=== PATIENT | male | born 1955 | race Caucasian/White ===

== ENCOUNTER 2025-05-18 09:52 | Emergency (ER) | payer MEDICARE, OTHER, SELFPAY ==
[2025-05-18] VITALS (10 sets, daily range): BP systolic 127–157; BP diastolic 73–83; PULSE 64–73; RESP 16–18; TEMP 36.4; O2SAT 95–100; BMI 29.9
--- OUTSIDE RECORDS SUMMARY | 2025-05-18 09:58 | XMS_ITS | Clinical Summary ---
Author Organization [facility] [place] Address [address] [place] [address] Phone Care Team Providers Care Hemodialysis Rn Name Role Phone Unavailable Primary Care Provider Unavailabl e Social History Tobacco Use Types Packs/Day Years Used Date Smoking Tobacco: Never Assessed Sex and Gender Information Value Date Recorded Sex Assigned at Not on file Legal Sex Male 3:27 PM CDT Gender Identity Not on file Sexual Orientation Not on file Plan of Treatment Health Maintenance Due Date Last Done Comments DTAP/TDAP/TD VACCINES (1 - Tdap) 12/07/1975 COLORECTAL SCREENING 2001 Colorectal Cancer Screening 2001 FIT-DNA Q 3 years 2001 FIT/FOBT Q 1 year 2001 Flex Sig/CT Colonography Q 5 years 2001 PNEUMOCOCCAL VACCINE 50+ YEARS (1 of 1 - PCV) 12/07/19 07 ZOSTER VACCINE (1 of 2) 2006 INFLUENZA VACCINE (#1) 2024 RSV VACCINE (60+ or ) (1 - 1-dose 75+ series) 12/07/2031 [facility]
--- NOTE | 2025-05-18 09:59 | XRR_ITS ---
PROCEDURE INFORMATION: Exam: XR Left Tibia and Fibula Exam date and time: 05/18/2025 10:03 AM Age: 69 years old Clinical indication: Injury or trauma; Fall; Blunt trauma; Lower leg; Left; Additional info: Traumatic pain and swelling TECHNIQUE: Imaging protocol: Radiologic exam of the left tibia and fibula. Views: 2 views. COMPARISON: No relevant prior studies available. FINDINGS: Bones/joints: Impacted, mildly angulated and comminuted fracture of the proximal tibial metaphysis. No definite visible fracture of the fibula within the limitations of the mildly suboptimally position study. Mild degenerative changes of the mediolateral compartments of the knee. Mild height loss of the lateral tibial plateau suspicious for an acute tibial plateau fracture. No visible fracture of the mid or distal tibia. Soft tissues: Soft tissue edema along the proximal lower leg. XR/XR tibia fibula LT 2V [id number] IMPRESSION: 1. Impacted, mildly angulated and comminuted fractures of the proximal tibial metaphysis. 2. Mild height loss of the lateral tibial plateau suspicious for an acute lateral tibial plateau fracture. 3. No visible fracture of the mid or distal tibia. No visible fibula fracture.
--- OUTSIDE RECORDS SUMMARY | 2025-05-18 09:59 | XMS_ITS | Encounter Summary ---
Author Organization [facility] Address [address] [place] [address] Care Team Providers Care Continuous Vulcanizing Machine Operator Name Role Phone Deandre Shabazz MD Primary Care Provider [phone] [phone] Encounter Details Date Type Department Care Team (Late st Contact Info) Description 05/12/2025 External Device Data ST[facility] ABSTRACTION Provider, Abstract NO ADDRESS ON FILE Social History Tobacco Use Types Packs/Day Years Used Date Smoking Tobacco: Never Smokeless Tobacco: Current Chew Alcohol Use Standard Drinks/Week Comments Not Currently 0 (1 standard drink = 0.6 oz pur e alcohol) socially Sex and Gender Information Value Date Recorded Sex Assigned at Not on file Legal Sex Male 4:32 PM CDT Gender Identity Not on file Sexual Orientation Not on file documented as of this encounter Plan of Treatment Upcoming Encounters Date Type Department Care Team (Late st Contact Info) Description 07/08/2025 1:30 PM COMMUNICATIONS DESIGNER Office Visit [facility] Urology [address] [address] Sophia Her FNP [address] [place] [phone] 10/22/2025 9:00 AM CDT Office Visit [facility] Family Medicine [place] [address] [address] Deandre Shabazz MD [address] [address] documented as of this encounter Visit Diagnoses Not on filedocumented in this encounter Care Teams Continuous Vulcanizing Machine Operator Relationship Specialty Start Date End Date Deandre Shabazz MD [address] [address] PCP - General Family Practice 10/07/22 documented as of this encounter
--- OUTSIDE RECORDS SUMMARY | 2025-05-18 09:59 | XMS_ITS | Encounter Summary ---
Author Organization [facility] Address [address] [place] [address] Care Team Providers Care Community Director Name Role Phone Deandre Shabazz MD Primary Care Provider [phone] [phone] Reason for Visit * Reason Onset Date Comments Self monitored BP readings 05/15/2025 Encounter Details Date Type Department Care Team (Late Contact Info) Description 05/15/2025 Patient Outreach [address] [address] Deandre Shabazz MD [address] [place] [phone] Self monitored BP readings Social History Tobacco Use Types Packs/Day Years [...] st Contact Info) Description 07/08/2025 1:[address] COLLECTIONS OFFICER Office Visit [facility] [place] [address] [place] [address] Sophia Her FNP [address] [place] [address] 10/22/2025 9:00 AM CDT Office Visit [facility] [address] [place] [phone] Deandre Shabazz MD [address] [place] [address] documented as of this encounter Visit Diagnoses Not on filedocumented in this encounter Care Teams Community Director Relationship Specialty Start Date End Date Deandre Shabazz MD [address] [place] [address] PCP - General Family Practice 10/07/22 documented as of this encounter
--- OUTSIDE RECORDS SUMMARY | 2025-05-18 09:59 | XMS_ITS | Clinical Summary ---
Author Organization [facility] [place] Address [address] [place] [address] Phone Care Team Providers Care Punchboard Stuffer Name Role Phone Deandre Shabazz MD Primary Care Provider [phone] [phone] Allergies Active Allergy Reactions Criticality Noted Date Comments Lisinopril Palpitations Low 10/26/2022 Medications nystatin (NYSTOP) 100,000 unit/gram powderIndication s:Tinea pedis of both feet Apply to affected area 2 times daily. 1 Gram 2 Active Additional Information Patient not taking.Reported on 12/05/2024 ketoconazole (NIZORAL) 2 % CreamIndications :Tinea pedis of both feet Apply to affected area daily. 30 Gram 1 2 Active Additional Information Patient not taking.Reported on 12/05/2024 fluticasone propionate (FLONASE) 50 mcg/spray [place], Suspension nasal inhalerIndicatio ns:Vertigo Administer 2 Sprays in each nostril daily. 16 Gram 11 5 Active meclizine (ANTIVERT) 25 mg tabletIndication s:Vertigo Take 1 Tablet (25 mg) by mouth 3 times daily as needed for Dizziness. 30 Tablet 11 5 Active amLODIPine (NORVASC) 10 mg tabletIndication s:HTN (hypertension), benign Take 1 Tablet (10 mg) by mouth daily. 100 Tablet 3 5 Active hydroCHLOROthiaz brit 25 mg tabletIndication s:HTN (hypertension), benign Take 1 Tablet (25 mg) by mouth daily. 100 Tablet 3 5 Active finasteride (PROSCAR) 5 mg tabletIndication s:Benign prostatic hyperplasia with lower urinary tract symptoms, symptom details unspecified Take 1 Tablet (5 mg) by mouth daily. 90 Tablet 4 Active Active Problems Problem Noted Date Diagnosed Date Asymmetric SNHL (sensorineural hearing loss) 01/2025 Vestibular schwannoma 10/18/2024 Vertigo 08/31/2024 HTN (hypertension), benign 10/07/2022 Tobacco use 10/07/2022 Mixed hyperlipidemia 10/07/2022 Encounters Date Type Department Care Team Description 05/15/2025 Patient Outreach [address] [address] Deandre Shabazz MD Self monitored BP readings 05/12/2025 External Device Data STL ABSTRACTION Provider, Abstract 04/23/2025 Patient Outreach [address] [address] Deandre Shabazz MD Primary Care Outreach 03/22/2025 Patient Outreach [address] [address] Deandre Shabazz MD Primary Care Outreach 03/20/2025 External Device Data STL ABSTRACTION Provider, Abstract 02/20/2025 12:00 PM CDT - 02/20/2025 11:59 PM CDT Hospital Encounter [facility] [address] [place] [address] Kenneth Durbin, Discharge Disposition: Home or Self Care 02/20/2025 Results Follow-Up [facility] [address] [place] [phone] Bailee Moran MRI IAC WWO & MRI BRAIN WWO CONTRAST from Last 3 Months Immunizations Immunization Administration Dates Next Due (ADACEL/BOOSTRIX)(10 YR UP) TDAP VACCINE, 0.5ML, IM 12/05/2024 Social History Tobacco Use Types Packs/Day Years Used Date Smoking Tobacco: Never Smokeless Tobacco: Current Chew Tobacco Cessation:Ready to Q uit: No; Counseling Given: Yes Alcohol Use Standard Drinks/Week Comments Not Currently 0 (1 standard drink = 0.6 oz pur e alcohol) socially Sex and Gender Information Value Date Recorded Sex Assigned at Not on file Legal Sex Male 4:32 PM CDT Gender Identity Not on file Sexual Orientation Not on file Last Filed Vital Signs Vital Sign Reading Time Taken Comments Blood Pressure 148/98 12/26/2024 4:10 PM CDT Pulse 82 12/05/2024 9:46 AM CDT Temperature 36.4 C (97.5 F) 12/05/2024 9:46 AM CDT Respiratory Rate 16 12/05/2024 9:46 AM CDT Oxygen Saturation 99% 12/05/2024 9:46 AM CDT Inhaled Oxygen Concentration - - Weight 94.3 kg (207 lb 12.8 oz) 12/26/2024 4:10 PM CDT Height 177.8 cm (5' 10 ) 12/26/2024 4:10 PM CDT Body Mass Index 29.82 12/26/2024 4:10 PM CDT Plan of Treatment Upcoming Encounters Date Type Department Care Team (Late st Contact Info) Description 07/08/2025 1:30 PM BAG BLEACHER Office Visit [facility] Urology [address] [place] [phone] Sophia Her FNP [facility] [address] [place] [phone] 10/22/2025 9:00 AM CDT Office Visit [facility] Family Medicine [place] [address] [phone] Deandre Shabazz MD [address] [phone] Health Maintenance Due Date Last Done Comments Pre-Diabetes and Diabetes Screening 1956 FIT/FOBT Q 1 YEAR (AUTO ORDER) 1974 COLORECTAL CANCER SCREENING (AUTO ORDER) 2001 COLORECTAL SCREENING 2001 FIT/FOBT Q 1 year 2001 Flex Sig/CT Colonography Q 5 years 2001 PNEUMOCOCCAL VACCINE 50+ YEA RS (1 of 1 - PCV) 2006 ZOSTER VACCINE (1 of 2) 2006 INFLUENZA VACCINE (#1) 2024 Colorectal Cancer Screening 11/01/2025 FIT-DNA Q 3 years 11/01/2025 11/01/2022 FIT/ DNA Q 3 YEARS (AUTO ORDER) 11/01/2025 , 11/01/2022 Colorectal Cancer Screening (AUTO ORDER) 11/02/2027 FLEX SIG/CT COLONOGRAPHY Q 5 YEARS (AUTO ORDER) 11/02/2027 11/01/2022, 11/01/2022 RSV VACCINE (60+ or ) (1 - 1-dose 75+ series) 12/07/2031 DTAP/TDAP/TD VACCINES (2 - T d or Tdap) 12/05/2034 12/05/2024 Medicare Advantage ([place]) Prev entative Visit/Annual Wellness Visit Completed 10/18/2024, 11/03/2023, 10/07/2022 Procedures Procedure Name Priority Date/Time Associated Diagnosis Comments MRI IAC W BRAIN MR W WO CONTRAST Routine 02/20/2025 1:00 PM CDT Vertigo Vestibular schwannoma (CMS/HCC) COLON CANCER SCREEN, STOOL DNA Routine 11/01/2022 1:45 PM CDT Encounter for colorectal cancer screening from Last 3 Months or Most Recently Relevant to Health Maintenance Results * MRI IAC WWO & MRI BRAIN WWO CONTRAST (02/20/2025 1:00 PM CDT) Anatomical Region Laterality Modality Magnetic Resonan ce 02/20/2025 1:00 PM CDT Impressions 02/20/2025 2:57 PM CDT IMPRESSION: Stable examination. 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 Narrative 02/20/2025 2:57 PM CDT Exam: MRI IAC WWO & MRI BRAIN WWO CONTRAST Date/Time of Exam: 02/20/2025 1:00 PM Reason For Exam: Dizziness, non-specific;vestibular schwannoma, right. Diagnosis: Vertigo; Vestibular schwannoma (CMS/HCC). Technique: Multiplanar multisequence MR images were obtained through the brain and temporal bones prior to and following gadolinium. Contrast: GADOBENATE DIMEGLUMINE 529 MG/ML(0.1 MMOL/0.2 ML) INTRAVENOUS SOLUTION Given:15 mL Comparison: September 06, 2024. FINDINGS: Midline structures are stable within normal limits. Ventricles nondilated. Mild global volume loss and low-grade leukoaraiosis stable underlying. No diffusionopathy, hemorrhage or mass lesion. No pathologic enhancement. Major intracranial arterial flow voids are preserved. Orbits and paranasal sinuses are grossly unremarkable. Dedicated pre and postcontrast thin section images through the temporal bones show grossly stable enhancing nodule within the right internal auditory canal fundus. Maximal dimension is again approximately 5 mm. Temporal bones otherwise appear unremarkable. Procedure Note Jd Hammonds DO - 02/20/2025 Exam: MRI IAC WWO & MRI BRAIN WWO CONTRAST Date/Time of Exam: 02/20/2025 1:00 PM Reason For Exam: Dizziness, non-specific;vestibular schwannoma, right. Diagnosis: Vertigo; Vestibular schwannoma (CMS/HCC). Technique: Multiplanar multisequence MR images were obtained through the brain and temporal bones prior to and following gadolinium. Contrast: GADOBENATE DIMEGLUMINE 529 MG/ML(0.1 MMOL/0.2 ML) INTRAVENOUS SOLUTION Given:15 mL Comparison: September 06, 2024. FINDINGS: Midline structures are stable within normal limits. Ventricles nondilated. Mild global volume loss and low-grade leukoaraiosis stable underlying. No diffusionopathy, hemorrhage or mass lesion. No pathologic enhancement. Major intracranial arterial flow voids are preserved. Orbits and paranasal sinuses are grossly unremarkable. Dedicated pre and postcontrast thin section images through the temporal bones show grossly stable enhancing nodule within the right internal auditory canal fundus. Maximal dimension is again approximately 5 mm. Temporal bones otherwise appear unremarkable. IMPRESSION: Stable examination. 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 Kenneth uDrbin MR ORDERABLES Final Resul t * COLON CANCER SCREEN, STOOL DNA (11/01/2022 1:45 PM CDT) COLOGUARD RESULT Negative Negative [facility] Comment: NEGATIVE TEST RESULT. A negative Cologuard result indicates a low likelihood that a colorectal cancer (CRC) or advanced adenoma (adenomatous polyps with more advanced pre-malignant features) is present. The chance that a person with a negative Cologuard test has a colorectal cancer is less than 1 in 1500 (negative predictive value >99.9%) or has an advanced adenoma is less than 5.3% (negative predictive value 94.7%). These data are based on a prospective cross-sectional study of 10,000 individuals at average risk for colorectal cancer who were screened with both Cologuard and colonoscopy. (Rylee Vail et al, N Engl J Med 2014;370(14):7094-8018) The normal value (reference range) for this assay is negative. COLOGUARD RE-SCREENING RECOMMENDATION: Periodic colorectal cancer screening is an important part of preventive healthcare for asymptomatic individuals at average risk for colorectal cancer. Following a negative Cologuard result, the [place] [employer] Society and U.S. Multi-Society Task Force screening guidelines recommend a Cologuard re-screening interval of 3 years. References: [place] [employer] Guideline for Colorectal Cancer Screening: https://www.cancer.org/cancer/qunar-axzdbe-gdswrm/jciqnaeee-jhzxzghvb-dmtzhix/ac s-rec ommendations.html.; Armand DK, Nani RUTH, Edilson HoyosK, Colorectal Cancer Screening: Recommendations for Physicians and Patients from the U.S. Multi-Society Task Force on Colorectal Cancer Screening , Am J Gastroenterology 2017; 112:9460-6457. TEST DESCRIPTION: Composite algorithmic analysis of stool DNA-biomarkers with hemoglobin immunoassay. Quantitative values of individual biomarkers are not reportable and are not associated with individual biomarker result reference ranges. Cologuard is intended for colorectal cancer screening of adults of either sex, 45 years or older, who are at average-risk for colorectal cancer (CRC). Cologuard has been approved for use by the U.S. FDA. The performance of Cologuard was established in a cross sectional study of average-risk adults aged 50-84. Cologuard performance in patients ages 45 to 49 years was estimated by sub-group analysis of near-age groups. Colonoscopies performed for a positive result may find as the most clinically significant lesion: colorectal cancer [4.0%], advanced adenoma (including sessile serrated polyps greater than or equal to 1cm diameter) [20%] or non- advanced adenoma [31%]; or no colorectal neoplasia [45%]. These estimates are derived from a prospective cross-sectional screening study of 10,000 individuals at average risk for colorectal cancer who were screened with both Cologuard and colonoscopy. (Rylee Berger al, N Engl J Med 2014;370(14):1098-0916.) Cologuard may produce a false negative or false positive result (no colorectal cancer or precancerous polyp present at colonoscopy follow up). A negative Cologuard test result does not guarantee the absence of CRC or advanced adenoma (pre-cancer). The current Cologuard screening interval is every 3 years. ([place] [employer] and U.S. Multi-Society Task Force). Cologuard performance data in a 10,000 patient pivotal study using colonoscopy as the reference method can be accessed at the following location: www.Grid20/20/results. Additional description of the Cologuard test process, warnings and precautions can be found at www.RoutewareogFly6rd.com. Stool STOOL SPECIMEN / Unknown 11/01/2022 1:45 PM CDT 11/03/2022 2:48 AM CDT Deandre Shabazz MD BODY FLUIDS AND STOOLS Fi nal Result [employer] [place] # [id number] [address], [address] [place] [address] from Last 3 Months or Most Recently Relevant to Health Maintenance Insurance [place] [id number] Care Teams Punchboard Stuffer Relationship Specialty Start Date End Date Deandre Shabazz MD [address] [phone] PCP - General Family Practice 10/07/22
--- NOTE | 2025-05-18 10:03 | W.ED.FALL ---
HPI - Fall General: Chief Complaint: Fall Stated Complaint: lt leg Time Seen by Provider: 05/18/25 09:55 History of Present Illness: 69-year-old male with a history of hypertension who presents emergency room after having had a fall. He has pain in his left proximal tibial area. He says he thinks is broken. He fell from standing on his porch. No head injury. No loss of consciousness. No other injuries. No nausea or vomiting. No altered mental status. No anticoagulation. No abdominal pain. No chest pain. No shortness of breath. Related Data Home Medications ?Medication ?Instructions ?Recorded ?Confirmed amlodipine 10 mg tablet 10 mg PO DAILY 05/18/25 05/18/25 finasteride 5 mg tablet 5 mg PO DAILY 05/18/25 05/18/25 fluticasone propionate 50 2 spray intranasal DAILY 05/18/25 05/18/25 mcg/actuation nasal spray,suspension hydrochlorothiazide 25 mg tablet 25 mg PO DAILY 05/18/25 05/18/25 Allergies Allergy/AdvReac Type Severity Reaction Status Date / Time No Known Allergies Allergy Verified 05/18/25 10:03 Review of Systems Narrative: Constitutional symptoms: Negative except as documented in HPI. Skin symptoms: Negative except as documented in HPI. Eye symptoms: Negative except as documented in HPI. ENMT symptoms: Negative except as documented in HPI. Respiratory symptoms: Negative except as documented in HPI. Cardiovascular symptoms: Negative except as documented in HPI. Gastrointestinal symptoms: Negative except as documented in HPI. Genitourinary symptoms: Negative except as documented in HPI. Musculoskeletal symptoms: Negative except as documented in HPI. Neurologic symptoms: Negative except as documented in HPI. Psychiatric symptoms: Negative except as documented in HPI. Endocrine symptoms: Negative except as documented in HPI. Physical Exam Narrative: EXAM NARRATIVE: General: Alert, no acute distress. Skin: Warm, dry. Head: Normocephalic, atraumatic. Neck: Supple, trachea midline. Eye: Extraocular movements are intact. Ears, nose, mouth and throat: mucosa moist. Cardiovascular: Regular, Normal peripheral perfusion. Respiratory: Lungs are clear to auscultation, respirations are non-labored, breath sounds are equal, Symmetrical chest wall expansion. Gastrointestinal: Soft, Nontender, Non distended Musculoskeletal: Swelling and possible deformity of the proximal tibial area. Neurovascularly intact Neurological: Alert and oriented, No focal neurological deficit observed. Psychiatric: Cooperative, appropriate mood & affect. Course Vital Signs: Vital signs: Vital Signs Temperature 97.6 F 05/18/25 09:56 Pulse Rate 71 05/18/25 11:00 Respiratory Rate 18 05/18/25 10:30 Blood Pressure 140/82 05/18/25 11:00 Pulse Oximetry 95 05/18/25 11:00 Oxygen Delivery Me thod Room Air 05/18/25 11:00 MDM - Fall Medical Decision Making Medical decision making Patient's reason for coming to the emergency room: Fall, leg pain Social determinants: Patient is retired. I reviewed the patient's medical record. No previous visits to this facility. I reviewed the patient's current home meds Patient says he takes medicine only for blood pressure. Alternate historians: None Differential diagnosis including but not limited to and based on the above HPI, review of systems and physical exam: In this patient with a musculoskeletal extremity traumatic injury an x-ray is being ordered to rule out fractures and dislocations. Orders placed to evaluate differential diagnosis based on the above differential, HPI and physical exam X-ray of the right tibia/fibula: Impacted mildly angulated and comminuted fractures of the proximal tibial metaphysis. Mild height loss. Also suspicion of an acute lateral tibial plateau fracture. This was reviewed and interpreted by myself the emergency room physician. I also reviewed the radiology report. Chest x-ray: No acute process. No infiltrate. No pneumothorax. This was reviewed and interpreted by myself the emergency room physician. I also reviewed the radiology report. EKG: Time 1110. Rate 67. Normal sinus rhythm, No ST-T changes, no ectopy, right bundle branch block, This was reviewed and interpreted by myself the ER physician at 11:15 AM Lab Review: Laboratory results were reviewed and interpreted by myself the emergency room physician. Mild leukocytosis. No anemia. No renal failure. Potassium is little bit low at 2.7 Assessment of risk: Level of risk: Moderate risk patient Hospitalization considerations: Patient is being admitted but he is being transferred to [facility] in [place] for trauma orthopedic surgeon Reexamination: Pain is a bit better controlled. Remains neurovascular intact. Knee immobilizer has been placed. Consultation: I spoke with Dr. Teague who is on-call for orthopedics. He feels that this fracture would be better taken care of by an orthopedic trauma surgeon. He is not comfortable operating on this. He recommends transfer to a tertiary care center. With trauma Ortho at [facility] who is accepted the patient to his service. And the hospitalist service there Dr. Criselda San. He request a CT of the knee. Patient can eat. N.p.o. after midnight. Consultation: I spoke with Dr. Guerrero Assessment and plan: Proximal tibia fracture Hypokalemia ?Dilaudid, Zofran, starting maintenance fluids. NPO. -I discussed the patient with the accepting physician on-call. - Discussed findings and plan with patient. Answered any questions. - All laboratory values were reviewed and interpreted personally by myself, the ER physician - All imaging was reviewed and interpreted personally by myself, the ER physician. - Evaluation and treatment of this problem were appropriate in the emergency setting Lab Data 05/18/25 10:50 05/18/25 10:50 Radiology Impressions Tibia/Fibula X-Ray 05/18/25 09:59 IMPRESSION: 1. Impacted, mildly angulated and comminuted fractures of the proximal tibial metaphysis. 2. Mild height loss of the lateral tibial plateau suspicious for an acute lateral tibial plateau fracture. 3. No visible fracture of the mid or distal tibia. No visible fibula fracture. Chest X-Ray 05/18/25 10:48 IMPRESSION: No acute findings. Laboratory Results WBC 14.26 10^3/uL (3.29-11.43) H 05/18/25 10:50 RBC 4.38 10^6/uL (3.85-5.65) 05/18/25 10:50 Hgb 14.30 g/dL (11.27-16.99) 05/18/25 10:50 Hct 41.7 % (37-53) 05/18/25 10:50 MCV 95.2 fl (82-101) 05/18/25 10:50 MCH 32.6 pg (27-33) 05/18/25 10:50 MCHC 34.3 g/dL (30-55) 05/18/25 10:50 RDW 12.7 % (12.1-15.1) 05/18/25 10:50 Plt Count 285 10^3/cmm (157-399) 05/18/25 10:50 MPV 9.4 fL (7.4-10.4) 05/18/25 10:50 Neut % (Auto) 84.2 % 05/18/25 10:50 Lymph % (Auto) 7.2 % 05/18/25 10:50 Wilson % (Auto) 6.8 % 05/18/25 10:50 Eos % (Auto) 0.6 % 05/18/25 10:50 Baso % (Auto) 0.4 % 05/18/25 10:50 Neut # (Auto) 12.00 10^3/uL (1.8-7.7) H 05/18/25 10:50 Lymph # (Auto) 1.0 10^3/uL (0.8-4.8) 05/18/25 10:50 Wilson # (Auto) 1.0 10^3/uL (0.2-0.9) H 05/18/25 10:50 Eos # (Auto) 0.1 10^3/uL (0.0-0.8) 05/18/25 10:50 Baso # (Auto) 0.1 10^3/uL (0.0-0.1) 05/18/25 10:50 Nucleated RBC % (auto) 0 % 05/18/25 10:50 Nucleated RBCs # 0.0 /100WBC 05/18/25 10:50 PT 12.80 SECONDS (12.1-14.9) 05/18/25 10:50 INR 0.90 (0.8-1.2) 05/18/25 10:50 APTT 28.6 SECONDS (23.9-36.7) 05/18/25 10:50 Sodium 136 mmol/L (136-145) 05/18/25 10:50 Potassium 2.7 mmol/L (3.5-5.1) L* 05/18/25 10:50 Chloride 97 mmol/L (98-107) L 05/18/25 10:50 Carbon Dioxide 25 mmol/L (22-29) 05/18/25 10:50 Anion Gap 16.7 (5-19) 05/18/25 10:50 BUN 18 mg/dL (8-23) 05/18/25 10:50 Creatinine 1.1 mg/dL (0.7-1.2) 05/18/25 10:50 GFR Calculation 66.6 mL/min (90-130) L 05/18/25 10:50 Glucose 136 mg/dL (65-115) H 05/18/25 10:50 Calculated Osmolality 286 mOsm/kg (285-295) 05/18/25 10:50 Lactic Acid 3.0 mmol/L (0.5-2.2) H 05/18/25 10:50 Calcium 9.7 mg/dL (8.5-10.5) 05/18/25 10:50 Total Bilirubin 0.5 mg/dL (0.15-1.2) 05/18/25 10:50 AST 18 U/L (0-40) 05/18/25 10:50 ALT 13 U/L (0-41) 05/18/25 10:50 Alkaline Phosphatase 64 U/L (40-130) 05/18/25 10:50 Total Protein 7.1 g/dL (6.6-8.7) 05/18/25 10:50 Albumin 4.3 g/dL (3.5-5.2) 05/18/25 10:50 Globulin 2.8 g/dL (1.3-4.6) 05/18/25 10:50 All radiology interpretation(s) finalized by discharge Discharge Plan Discharge Patient Disposition: Xfer Short-Term Hosp Clinical Impression: Bilateral closed proximal tibial fracture, Fall from standing, Hypokalemia Condition: Stable Referrals: Deandre Shabazz [Primary Care Provider, [facility]] Print Language: Yemeni Coding Level of Care Code ED Special Education Inclusion Teacher for Nimo Gomez
[2025-05-18] MEDS: ondansetron 2 mg/ML SDV 2 mL 4 MG IVP (10:32)
[2025-05-18] MEDS: HYDROmorphone 0.5 MG/0.5 ML INJ 1 MG IVP ×2 (10:32→15:30)
--- NOTE | 2025-05-18 10:48 | XRR_ITS ---
PROCEDURE INFORMATION: Exam: XR Chest Exam date and time: 05/18/2025 10:59 AM Age: 69 years old Clinical indication: Other: Presurgical TECHNIQUE: Imaging protocol: Radiologic exam of the chest. Views: 1 view. COMPARISON: No relevant prior studies available. FINDINGS: Lungs: Unremarkable. No consolidation. Pleural spaces: Unremarkable. No pleural effusion. No pneumothorax. Heart/Mediastinum: Unremarkable. No cardiomegaly. Bones/joints: Unremarkable. XR/XR chest 1V portable [id number] IMPRESSION: No acute findings.
--- NOTE | 2025-05-18 11:10 | ECG_ITS ---
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
[2025-05-18 11:12] LABS: Hematocrit 41.7 % (37-53); Hemoglobin 14.30 g/dL (11.27-16.99); Mean Corpuscular HGB Conc 34.3 g/dL (30-55); Mean Corpuscular Hemoglobin 32.6 pg (27-33); Mean Corpuscular Volume 95.2 fl (82-101); Nucleated Red Blood Cells % 0 %; Platelet Count 285 10^3/cmm (157-399); Red Blood Count 4.38 10^6/uL (3.85-5.65); White Blood Count 14.26 10^3/uL (3.29-11.43)
[2025-05-18 11:23] LABS: INR 0.90 (0.8-1.2); Partial Thromboplastin Time 28.6 SECONDS (23.9-36.7); Prothrombin Time 12.80 SECONDS (12.1-14.9)
[2025-05-18 11:27] LABS: Lactic Sepsis W/Reflex 3.0 mmol/L (0.5-2.2)
[2025-05-18 11:31] LABS: Alanine Aminotransferase 13 U/L (0-41); Albumin Level 4.3 g/dL (3.5-5.2); Alkaline Phosphatase 64 U/L (40-130); Anion Gap 16.7 (5-19); Aspartate Amino Transferase 18 U/L (0-40); Blood Urea Nitrogen 18 mg/dL (8-23); Calcium 9.7 mg/dL (8.5-10.5); Carbon Dioxide 25 mmol/L (22-29); Chloride 97 mmol/L (98-107); Globulin 2.8 g/dL (1.3-4.6); Glucose 136 mg/dL (65-115); Osmolality Calculated 286 mOsm/kg (285-295); Sodium 136 mmol/L (136-145); Total Protein 7.1 g/dL (6.6-8.7)
[2025-05-18 11:34] LABS: Potassium 2.7 mmol/L (3.5-5.1)
--- NOTE | 2025-05-18 11:36 | PC.NURSE ---
Pt informed of pt being npo, nothing to eat or drink by mouth, pt and pt voices understanding. pt given oral wet swabs for mouth.
--- NOTE | 2025-05-18 12:10 | CTR_ITS ---
PROCEDURE INFORMATION: Exam: CT Left Lower Extremity Without Contrast, Knee Exam date and time: 05/18/2025 12:39 PM Age: 69 years old Clinical indication: Injury or trauma; Fall; Blunt trauma; Knee; Left; Additional info: Ortho request TECHNIQUE: Imaging protocol: CT of the left lower extremity without contrast was performed. Exam focused on the knee. Radiation optimization: All CT scans at this facility use at least one of these dose optimization techniques: automated exposure control; mA and/or kV adjustment per patient size (includes targeted exams where dose is matched to clinical indication); or iterative reconstruction. COMPARISON: CR (LOW EXM, ) 05/18/2025 10:03 AM RADIATION DOSE METRICS: Total DLP (mGy-cm): 486.31 FINDINGS: Bones/joints: 3D reconstructed images left knee are included. Severely comminuted, mildly impacted, [id number] displaced fracture of the proximal tibial metaphysis, with the main fracture lines extending transversely across the metadiaphyseal junction , as well as obliquely extending into the tibial intercondylar eminence and margin of the lateral tibial plateau. Mildly-comminuted mildly displaced fracture of the superior tip of the fibular head. Small volume lipohemarthrosis containing 2 calcific loose bodies (largest measuring 9 mm). 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 Vasculature: Atheromatous calcifications CT/CT knee LT wo con* [id number] IMPRESSION: 1. Fractures of the proximal left tibial metaphysis and superior tip of the left fibular head, as detailed above. 2. Nonspecific subcutaneous soft tissue swelling/induration/ecchymosis involving the anterior knee and anterior abreu region; suggestion of possible Lopez Victorino (degloving) anterolateral soft tissues in these regions.. 3. Small volume left knee lipohemarthrosis containing 2 calcific loose bodies (largest measuring 9 mm). 4. Left knee patellofemoral articulation demonstrates severe DJD mild lateral patellar subluxation compatible with patellar maltracking)
[2025-05-18 12:13] LABS: Reflex Lactate Order REFLEX LACTIC ORDERD
[2025-05-18] MEDS: potassium chloride oral liq 20 mEq/15 mL UDC 40 MEQ PO (12:22)
[2025-05-18] MEDS: HYDROmorphone 0.5 MG/0.5 ML INJ IVP (13:01)
[2025-05-18 13:46] LABS: Lactic Acid level (Lactate) 2.0 mmol/L (0.5-2.2)
== END 2025-05-18 15:39 | disposition short-term general hospital (02) ==
PROVIDERS: Emergency Provider Emergency Medicine; PCP Family Medicine
DX: S82.192A Other fracture of upper end of left tibia, initial encounter for closed fracture (principal); E87.6 Hypokalemia; W19.XXXA Unspecified fall, initial encounter
CPT/HCPCS: 29505; 71045; 73590; 73700; 80053; 83605; 85025; 85610; 85730; 93005; 96374; 96375; 96376; 99285; J1171; J2405; J7030; J9999